=== PATIENT | female | born 1940 | race Caucasian/White ===

== ENCOUNTER 2017-03-21 10:54 | Inpatient (IN) | payer MEDICARE ==
[~2017-03-21] VITALS: Ht 165.1 cm; Wt 81.6 kg
[~2017-03-21 10:54] MED LIST: ATOR20TA PO; CIPR-259 PO; GLUC-221; LEVO50TA PO; METR500T PO; MULT-1133; OMEP40CA37 PO; ONDA4TAB9 PO; OSC500T PO
[2017-03-21] MEDS ORDERED: ondansetron/PF 4mg/2ml inj IV ONE ×2 (11:10→11:35)
[2017-03-21] MEDS ORDERED: normal saline 1000ML IV soln IVB ONE ×3 (11:10→11:50)
[2017-03-21 11:26] LABS: BASOPHILS # (AUTO) 0.1 X10'3 (0-0.2); BASOPHILS % (AUTO) 0.6 % (0-1); EOSINOPHILS # (AUTO) 0.2 X10'3 (0-0.9); EOSINOPHILS % (AUTO) 1.9 % (0-6); HEMATOCRIT 41.5 % (35.0-45.0); HEMOGLOBIN 13.9 g/dl (12.0-16.0); LYMPHOCYTES # (AUTO) 1.5 X10'3 (1.1-4.8); LYMPHOCYTES % (AUTO) 11.5 % (21-51); MEAN CORPUSCULAR HEMOGLOBIN 30.8 PG (27.0-31.0); MEAN CORPUSCULAR HGB CONC 33.4 % (33.0-36.5); MEAN CORPUSCULAR VOLUME 92.2 FL (78-98); MEAN PLATELET VOLUME 7.7 FL (7.4-10.4); MONOCYTES # (AUTO) 0.9 X10'3 (0-0.9); MONOCYTES % (AUTO) 7.3 % (2-12); NEUTROPHILS % (AUTO) 78.7 % (42-75); PLATELET COUNT 213 X10'3 (140-440); RED CELL DISTRIBUTION WIDTH 12.9 % (11.5-14.5); WHITE BLOOD COUNT 12.6 X10'3 (4.5-11.0)
[2017-03-21] MEDS ORDERED: LORazepam 2 mg/ml vial IV ONE (11:35)
[2017-03-21] MEDS ORDERED: HYDROmorphone 1 mg/ml syringe IV ONE (11:35)
[2017-03-21] MEDS ORDERED: HYDROmorphone 1 mg/ml syringe IV PRN (11:35)
[2017-03-21 11:44] LABS: ALANINE AMINOTRANSFERASE 23 U/L (12-78); ALBUMIN 3.3 G/DL (3.4-5.0); ALKALINE PHOSPHATASE 87 IU/L (46-116); ANION GAP 4 (8-16); ASPARTATE AMINO TRANSFERASE 17 U/L (10-37); BILIRUBIN,TOTAL 0.4 MG/DL (0.1-1.0); BLOOD UREA NITROGEN 9 MG/DL (7-18); BUN/CREATININE RATIO 9.2 (6.6-38.0); CALCIUM 8.9 MG/DL (8.5-10.1); CHLORIDE 107 MMOL/L (99-107); CREATININE 0.98 MG/DL (0.40-0.90); GLUCOSE 93 MG/DL (70-104); POTASSIUM 3.8 MMOL/L (3.5-5.1); SODIUM 142 MMOL/L (135-145); TOTAL CARBON DIOXIDE 30.8 MMOL/L (24-32); TOTAL PROTEIN 6.5 G/DL (6.4-8.2); eGFR 55 ML/MIN
[2017-03-21] MEDS ORDERED: piperacillin/tazo 3.375gm/50ml 50 ML IV ONE (11:45)
[2017-03-21 11:47] LABS: LIPASE 118 U/L (73-393)
[2017-03-21 11:48] LABS: INR 0.9 INR; PROTHROMBIN TIME 9.7 SECONDS (9.0-12.0)
[2017-03-21] MEDS ORDERED: iohexol 300mg/ml 100ml inj. ONE (13:08)
[2017-03-21 13:46] LABS: CLARITY,URINE Clear (Clear); COLOR,URINE Yellow (Yellow); GLUCOSE, URINE Negative (Neg); KETONES,URINE Negative (Neg); LEUKOCYTE ESTERASE ,URINE Negative (Neg); NITRITES, URINE Negative (Neg); OCCULT BLOOD,URINE Negative (Neg); PROTEIN,URINE Negative (Neg); UROBILINOGEN,URINE 0.2 E.U/dL (0.2-1.0)
[2017-03-21 13:47] LABS: UA COLLECTION TYPE OTHER
[2017-03-21] MEDS ORDERED: HYDROcodone/acetaminophen 5mg/325mg tablet PO PRN (14:10)
[2017-03-21] MEDS ORDERED: acetaminophen 325mg tablet PO PRN ×2 (14:10)
[2017-03-21] MEDS ORDERED: mag hydrox/Alum hydrox/simeth 30ml oral suspension PO PRN (14:10)
[2017-03-21] MEDS ORDERED: magnesium hydroxide 30ml (MOM) UD suspension PO PRN (14:10)
[2017-03-21] MEDS ORDERED: ondansetron/PF 4mg/2ml inj IV PRN (14:10)
[2017-03-21] MEDS: normal saline 1000ml 1,000 ML IV SCH (14:59)
[2017-03-21 16:00] VITALS: BP 120/53
[2017-03-21 20:00] VITALS: BP 127/56
[2017-03-21] MEDS ORDERED: docusate sod 100mg capsule PO ONE (20:00)
[2017-03-21] MEDS: docusate sod 100mg capsule PO SCH (20:00)
[2017-03-21] MEDS: HYDROcodone/acetaminophen 10/325mg tab PO PRN (20:20)
[2017-03-21 21:26] LABS: OCCULT BLOOD STOOL NEGATIVE (Neg)
[2017-03-22] VITALS: BP 114/61
[2017-03-22] MEDS: HYDROcodone/acetaminophen 10/325mg tab PO PRN ×2 (03:13→18:57)
[2017-03-22] MEDS: normal saline 1000ml 1,000 ML IV SCH ×3 (03:37→20:32)
[2017-03-22] MEDS: HYDROmorphone inj. 0.5 MG/0.5 ML DISP.SYRIN IV PRN ×2 (03:47→10:49)
[2017-03-22 06:21] LABS: BASOPHILS % (AUTO) 0.5 % (0-1); EOSINOPHILS # (AUTO) 0.3 X10'3 (0-0.9); EOSINOPHILS % (AUTO) 3.3 % (0-6); HEMATOCRIT 36.5 % (35.0-45.0); HEMOGLOBIN 12.1 g/dl (12.0-16.0); LYMPHOCYTES % (AUTO) 23.9 % (21-51); MEAN CORPUSCULAR HEMOGLOBIN 30.4 PG (27.0-31.0); MEAN CORPUSCULAR HGB CONC 33.2 % (33.0-36.5); MEAN CORPUSCULAR VOLUME 91.4 FL (78-98); MEAN PLATELET VOLUME 8.2 FL (7.4-10.4); MONOCYTES # (AUTO) 0.9 X10'3 (0-0.9); MONOCYTES % (AUTO) 10.8 % (2-12); NEUTROPHILS # (AUTO) 5.2 X10'3 (1.8-7.7); NEUTROPHILS % (AUTO) 61.5 % (42-75); PLATELET COUNT 184 X10'3 (140-440); RED BLOOD COUNT 3.99 X10'6 (4.20-5.60); RED CELL DISTRIBUTION WIDTH 12.9 % (11.5-14.5); WHITE BLOOD COUNT 8.5 X10'3 (4.5-11.0)
[2017-03-22 06:24] LABS: ALBUMIN 2.7 G/DL (3.4-5.0); ANION GAP 5 (8-16); BLOOD UREA NITROGEN 5 MG/DL (7-18); BUN/CREATININE RATIO 6.3 (6.6-38.0); CALCIUM 8.5 MG/DL (8.5-10.1); CHLORIDE 110 MMOL/L (99-107); GLUCOSE 94 MG/DL (70-104); MAGNESIUM 1.8 MG/DL (1.5-2.4); POTASSIUM 3.5 MMOL/L (3.5-5.1); SODIUM 142 MMOL/L (135-145); TOTAL CARBON DIOXIDE 27.5 MMOL/L (24-32); eGFR 70 ML/MIN
[2017-03-22 07:16] VITALS: BP 108/60
[2017-03-22] MEDS: docusate sod 100mg capsule PO SCH ×2 (08:00→20:28)
[2017-03-22 11:39] VITALS: BP 133/69
[2017-03-22] MEDS ORDERED: docusate sod 100mg capsule PO ONE (11:55)
[2017-03-22 20:00] VITALS: BP 124/69
[2017-03-23] VITALS: BP 130/62
[2017-03-23] MEDS: normal saline 1000ml 1,000 ML IV SCH ×2 (05:34→16:22)
[2017-03-23 06:21] LABS: BASOPHILS % (AUTO) 0.6 % (0-1); EOSINOPHILS # (AUTO) 0.2 X10'3 (0-0.9); EOSINOPHILS % (AUTO) 4.1 % (0-6); HEMATOCRIT 35.7 % (35.0-45.0); HEMOGLOBIN 11.9 g/dl (12.0-16.0); LYMPHOCYTES % (AUTO) 34.3 % (21-51); MEAN CORPUSCULAR HEMOGLOBIN 30.2 PG (27.0-31.0); MEAN CORPUSCULAR HGB CONC 33.2 % (33.0-36.5); MEAN CORPUSCULAR VOLUME 90.9 FL (78-98); MEAN PLATELET VOLUME 8.1 FL (7.4-10.4); MONOCYTES # (AUTO) 0.6 X10'3 (0-0.9); MONOCYTES % (AUTO) 10.9 % (2-12); NEUTROPHILS % (AUTO) 50.1 % (42-75); PLATELET COUNT 178 X10'3 (140-440); RED BLOOD COUNT 3.93 X10'6 (4.20-5.60); WHITE BLOOD COUNT 5.9 X10'3 (4.5-11.0)
[2017-03-23 06:23] LABS: ALBUMIN 2.5 G/DL (3.4-5.0); ANION GAP 4 (8-16); BLOOD UREA NITROGEN 3 MG/DL (7-18); BUN/CREATININE RATIO 3.3 (6.6-38.0); CALCIUM 8.5 MG/DL (8.5-10.1); CHLORIDE 111 MMOL/L (99-107); GLUCOSE 92 MG/DL (70-104); MAGNESIUM 1.8 MG/DL (1.5-2.4); POTASSIUM 3.4 MMOL/L (3.5-5.1); SODIUM 145 MMOL/L (135-145); TOTAL CARBON DIOXIDE 29.8 MMOL/L (24-32); eGFR 61 ML/MIN
[2017-03-23 07:07] VITALS: BP 126/60
[2017-03-23] MEDS: levoTHYROXINE 25mcg tablet PO SCH (08:28)
[2017-03-23] MEDS: calcium carbonate 500mg tablet PO SCH (08:28)
[2017-03-23] MEDS: docusate sod 100mg capsule PO SCH ×2 (08:28→19:50)
[2017-03-23] MEDS: atorvastatin 20mg tablet PO SCH (08:28)
[2017-03-23] MEDS: HYDROmorphone inj. 0.5 MG/0.5 ML DISP.SYRIN IV PRN (08:28)
[2017-03-23] MEDS: multivitamins, therapeutics tablet PO SCH (08:28)
[2017-03-23] MEDS: pantoprazole 40mg Tablet.DR PO SCH (08:28)
[2017-03-23] MEDS ORDERED: magnesium 2GM in 50ml NS 50 ML IV PRN (08:50)
[2017-03-23] MEDS ORDERED: magnesium 4gm in 100ml NS 100 ML IV PRN (08:50)
[2017-03-23] MEDS ORDERED: potassium Cl 40MEQ/NS 500ml 500 ML IV PRN ×2 (08:50)
[2017-03-23] MEDS ORDERED: magnesium Cl slow-release 64mg tablet PO PRN (08:50)
[2017-03-23] MEDS ORDERED: potassium Cl 20 mEq SR tablet PO PRN ×2 (08:50)
[2017-03-23] MEDS ORDERED: Potassium Cl inj 40 MEQ, LIDOcaine 1% 30ml vial 5 ML in normal saline 500ml IV soln 500 ML IV ONE (09:25)
[2017-03-23] MEDS: MESSAGE TO NURSING PO NR (10:48)
[2017-03-23 11:00] VITALS: BP 128/62
[2017-03-23] MEDS ORDERED: lactulose 20gm/30ml cup PO ONE (15:20)
[2017-03-23 20:00] VITALS: BP 132/49
[2017-03-23] MEDS: temazepam 15mg capsule PO PRN (23:49)
[2017-03-24] VITALS: BP 127/61
[2017-03-24] MEDS: normal saline 1000ml 1,000 ML IV SCH ×3 (05:50→15:00)
[2017-03-24 06:39] LABS: ALBUMIN 2.3 G/DL (3.4-5.0); ANION GAP 8 (8-16); BLOOD UREA NITROGEN 4 MG/DL (7-18); BUN/CREATININE RATIO 6.7 (6.6-38.0); CALCIUM 7.5 MG/DL (8.5-10.1); CHLORIDE 117 MMOL/L (99-107); GLUCOSE 85 MG/DL (70-104); MAGNESIUM 1.3 MG/DL (1.5-2.4); POTASSIUM 3.3 MMOL/L (3.5-5.1); SODIUM 149 MMOL/L (135-145); TOTAL CARBON DIOXIDE 24.4 MMOL/L (24-32); eGFR > 90 ML/MIN
[2017-03-24] MEDS ORDERED: LIDOcaine 1% 30ml vial 5 ML in potassium Cl 40MEQ/NS 500ml 500 ML IV PRN (07:00)
[2017-03-24] MEDS: docusate sod 100mg capsule PO SCH ×2 (07:29→20:43)
[2017-03-24] MEDS: multivitamins, therapeutics tablet PO SCH (07:29)
[2017-03-24] MEDS: levoTHYROXINE 25mcg tablet PO SCH (07:29)
[2017-03-24] MEDS: atorvastatin 20mg tablet PO SCH (07:29)
[2017-03-24] MEDS: calcium carbonate 500mg tablet PO SCH (07:29)
[2017-03-24] MEDS: pantoprazole 40mg Tablet.DR PO SCH (07:29)
[2017-03-24 08:00] VITALS: BP 136/60
[2017-03-24 08:03] LABS: BASOPHILS % (AUTO) 0.4 % (0-1); EOSINOPHILS # (AUTO) 0.2 X10'3 (0-0.9); HEMATOCRIT 36.8 % (35.0-45.0); HEMOGLOBIN 12.8 g/dl (12.0-16.0); LYMPHOCYTES # (AUTO) 1.7 X10'3 (1.1-4.8); LYMPHOCYTES % (AUTO) 27.2 % (21-51); MEAN CORPUSCULAR HEMOGLOBIN 30.9 PG (27.0-31.0); MEAN CORPUSCULAR HGB CONC 34.8 % (33.0-36.5); MEAN CORPUSCULAR VOLUME 88.8 FL (78-98); MEAN PLATELET VOLUME 8.2 FL (7.4-10.4); MONOCYTES # (AUTO) 0.6 X10'3 (0-0.9); MONOCYTES % (AUTO) 9.5 % (2-12); NEUTROPHILS # (AUTO) 3.6 X10'3 (1.8-7.7); NEUTROPHILS % (AUTO) 59.9 % (42-75); PLATELET COUNT 210 X10'3 (140-440); RED BLOOD COUNT 4.14 X10'6 (4.20-5.60); RED CELL DISTRIBUTION WIDTH 12.1 % (11.5-14.5); WHITE BLOOD COUNT 6.2 X10'3 (4.5-11.0)
[2017-03-24] MEDS ORDERED: bisacodyl 10mg suppository rectal RC ONE (08:35)
[2017-03-24] MEDS: MESSAGE TO NURSING PO NR (10:00)
[2017-03-24 11:00] VITALS: BP 126/59
[2017-03-24] MEDS ORDERED: LORazepam 2 mg/ml vial IV ONE (13:05)
[2017-03-24 20:00] VITALS: BP 152/68
[2017-03-25] VITALS: BP 132/67
[2017-03-25] MEDS: temazepam 15mg capsule PO PRN (00:40)
[2017-03-25] MEDS: normal saline 1000ml 1,000 ML IV SCH (05:00)
[2017-03-25 06:46] LABS: BASOPHILS % (AUTO) 0.7 % (0-1); EOSINOPHILS # (AUTO) 0.2 X10'3 (0-0.9); EOSINOPHILS % (AUTO) 3.1 % (0-6); HEMATOCRIT 37.7 % (35.0-45.0); HEMOGLOBIN 12.6 g/dl (12.0-16.0); LYMPHOCYTES # (AUTO) 1.4 X10'3 (1.1-4.8); LYMPHOCYTES % (AUTO) 24.7 % (21-51); MEAN CORPUSCULAR HEMOGLOBIN 30.4 PG (27.0-31.0); MEAN CORPUSCULAR HGB CONC 33.5 % (33.0-36.5); MEAN CORPUSCULAR VOLUME 90.8 FL (78-98); MEAN PLATELET VOLUME 8.1 FL (7.4-10.4); MONOCYTES # (AUTO) 0.5 X10'3 (0-0.9); MONOCYTES % (AUTO) 9.4 % (2-12); NEUTROPHILS # (AUTO) 3.6 X10'3 (1.8-7.7); NEUTROPHILS % (AUTO) 62.1 % (42-75); PLATELET COUNT 205 X10'3 (140-440); RED BLOOD COUNT 4.16 X10'6 (4.20-5.60); RED CELL DISTRIBUTION WIDTH 13.2 % (11.5-14.5); WHITE BLOOD COUNT 5.9 X10'3 (4.5-11.0)
[2017-03-25 06:47] LABS: ALBUMIN 2.6 G/DL (3.4-5.0); ANION GAP 7 (8-16); BLOOD UREA NITROGEN 6 MG/DL (7-18); BUN/CREATININE RATIO 8.6 (6.6-38.0); CALCIUM 8.5 MG/DL (8.5-10.1); CHLORIDE 113 MMOL/L (99-107); GLUCOSE 99 MG/DL (70-104); MAGNESIUM 1.6 MG/DL (1.5-2.4); POTASSIUM 3.8 MMOL/L (3.5-5.1); SODIUM 145 MMOL/L (135-145); TOTAL CARBON DIOXIDE 24.8 MMOL/L (24-32); eGFR 82 ML/MIN
[2017-03-25 07:12] VITALS: BP 126/76
[2017-03-25] MEDS: multivitamins, therapeutics tablet PO SCH (07:22)
[2017-03-25] MEDS: pantoprazole 40mg Tablet.DR PO SCH (07:22)
[2017-03-25] MEDS: docusate sod 100mg capsule PO SCH (07:22)
[2017-03-25] MEDS: levoTHYROXINE 25mcg tablet PO SCH (07:22)
[2017-03-25] MEDS: atorvastatin 20mg tablet PO SCH (07:22)
[2017-03-25] MEDS: calcium carbonate 500mg tablet PO SCH (07:22)
[2017-03-25] MEDS: MESSAGE TO NURSING PO NR (09:33)
[2017-03-25 12:30] VITALS: BP 140/58
== END 2017-03-25 14:20 | disposition home or self-care (01) | DRG 392 ==
LOC: ER 10:56 → MED 3N 16:29 → CMPBEDREQ 19:25
PROVIDERS: ADMIT Family Medicine; ATTEND Family Medicine
PROC: BW211ZZ Computerized Tomography (CT Scan) of Abdomen and Pelvis using Low Osmolar Contrast (ICD-10-PCS; principal; 2017-03-21)
DX: K52.9 Noninfective gastroenteritis and colitis, unspecified (principal); D72.829 Elevated white blood cell count, unspecified; K59.03 Drug induced constipation; E78.00 Pure hypercholesterolemia, unspecified; K64.8 Other hemorrhoids; F41.9 Anxiety disorder, unspecified; K21.9 Gastro-esophageal reflux disease without esophagitis; K57.90 Diverticulosis of intestine, part unspecified, without perforation or abscess without bleeding; M81.0 Age-related osteoporosis without current pathological fracture; M19.90 Unspecified osteoarthritis, unspecified site; T40.2X5A Adverse effect of other opioids, initial encounter; Z90.710 Acquired absence of both cervix and uterus; Z79.899 Other long term (current) drug therapy; Z82.49 Family history of ischemic heart disease and other diseases of the circulatory system; Y92.89 Other specified places as the place of occurrence of the external cause
CPT/HCPCS: 36415; 74021; 74177; 80048; 80053; 81003; 82272; 83605; 83690; 83735; 85025; 85610; 87040; 87045; 87046; 87070; 87324; 87449; 89055; 96365; 96375; 99285; A6446; J1170; J2060; J2270; J2405; J2543; J3480; J3490; J7030; Q9967

== ENCOUNTER 2022-11-03 13:42 | Outpatient (CLI) | payer MEDICARE, OTHER ==
[~2022-11-03 13:42] MED LIST changes: -CIPR-259 PO; -METR500T PO; +OMEP40CA21 PO; -OMEP40CA37 PO; -ONDA4TAB9 PO
== END 2022-11-03 23:59 | disposition home or self-care (01) ==
LOC: RAD 13:42
PROVIDERS: ATTEND Family Medicine
DX: S83.281A Other tear of lateral meniscus, current injury, right knee, initial encounter (principal); S83.8X1A Sprain of other specified parts of right knee, initial encounter; M17.11 Unilateral primary osteoarthritis, right knee; M94.261 Chondromalacia, right knee; M25.461 Effusion, right knee; M65.861 Other synovitis and tenosynovitis, right lower leg; M25.561 Pain in right knee; X58.XXXA Exposure to other specified factors, initial encounter; Y93.89 Activity, other specified; Y92.89 Other specified places as the place of occurrence of the external cause; Y99.8 Other external cause status
CPT/HCPCS: 73721

== ENCOUNTER 2024-11-29 14:44 | Emergency (ER) | payer MEDICARE, OTHER ==
[~2024-11-29] VITALS: Ht 165.1 cm; Wt 72.7 kg
[~2024-11-29 14:44] MED LIST changes: -ATOR20TA PO; +DULO-31 PO; +GABA300C PO; +MELO-100 PO; +METO-395 PO; -OSC500T PO
[2024-11-29 14:59] VITALS: TEMP 98.7
[2024-11-29] MEDS: proparacaine 0.5% ophthalmic drops 15ml LEFTEYE ONE (16:36)
[2024-11-29 16:39] VITALS: BP 137/59; PULSE 98; RESP 16; O2SAT 98
[2024-11-29] MEDS ORDERED: PRED50TA PO (16:40)
[2024-11-29] MEDS ORDERED: VALA100031 PO (16:40)
--- NOTE | 2024-11-29 16:42 | Physician Documentation ---
History of Present Illness ~ Chief Complaint: Headache Stated Complaint: HEADACHE Time Seen by MD: 15:43 Primary Medical Doctor: Edison Grigsby ([facility]) for neuro, Cross Source: patient Mode of Arrival: POV, Ambulatory Exam Limitations: no limitations HPI Ms. Najera is an 84 y/o female who presents with c/o a PERALES. She states that the PERALES started on Nov and is associated with a rash to the left side of her face. She states that the pain is actually to the left side of her face and not in her head. 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 She states that her symptoms were improving but when she completed the script, the symptoms returned. She denies recent head trauma. No neck pain or stiffness. No ocular pain or acute visual changes. No fever/chills. No recent changes in her hearing. She does not wear contact lens. Medication Reconciliation Allergies: Coded Allergies: No Known Allergies (Unverified , 07/16/24) Scheduled Duloxetine Hcl* (Cymbalta*), 60 MG PO DAILY, (Reported) Gabapentin (Neurontin), 1 CAP PO Q8H, (Reported) Levothyroxine Sodium (Synthroid), 1 TABLET PO DAILY, (Reported) Meloxicam* (Meloxicam*), 1 TAB PO DAILY, (Reported) Metoprolol Succinate (Metoprolol Succinate), 1 TAB PO DAILY, (Reported) Omeprazole (Prilosec), 0.5 CAP PO DAILY, (Reported) Prednisone (Prednisone), 1 TAB PO DAILY Valacyclovir HCl (Valacyclovir), 1 TAB PO Q8H Miscellaneous Medications Glucosam/Chond/Hyalu/Cf Borate (Move Free Joint Health Tablet), (Reported) Multivits-Min/Iron/FA/Lutein (Centrum Silver Women Tablet), (Reported) Past Medical History Past Medical History: Seizures, High Cholesterol, Constipation, GERD, Hemorrhoids, Thyroid (unspecified), Arthritis, Osteoporosis Past Surgical History: hysterectomy, orthopedic surgeries Patient History: (CAD) Coronary arteriosclerosis FATHER, Onset:Unknown Alcohol Use: Rarely Drug Use: none Lives with: Family Lives In: Home Occupation: retired Review of Systems All Other Systems at this time: Reviewed and Negative ROS As stated above in the HPI, otherwise all systems are reviewed and negative. Physical Exam Vital Signs: RN Vital Signs have been reviewed: Yes, Temperature: 98.7, Heart Rate: 73, Respiratory Rate: 16, BP: 129/61, Pulse Oximetry: 100, Weight: 72.730 Oxygen Flow Rate: 0 Physical Exam VITALS: Reviewed and as above. GENERAL: Alert, no apparent distress. HEENT: Normocephalic, atraumatic, PERRL, EOMI, dry mucosa, no erythema RESPIRATORY: Lungs clear, normal breath sounds, no respiratory distress. CHEST: No accessory muscle use, no retractions CV: Regular rate, rhythm, no edema, no murmur, No: JVD GI: Soft, tenderness to the lower abdomen with palpation., bowels sounds present, no rebound, guarding, or rigidity BACK: No CVA tenderness, or swelling MUSCULOSKELETAL No deformities, no edema SKIN: Rash to left side of face. No blisters or bullae. No petechia. NEURO: Oriented x4, No motor or sensory deficit PSYCH: Normal mood and affect, no agitation Progress Results/Orders Results/Orders Completed Orders - ASHKAN JIMENEZ MD Proparacaine Ophth Solution (Alcaine Oph (11/29/24 16:30) Vital Signs 11/29/24 11/29/24 11/29/24 11/29/24 14:59 15:56 16:06 16:39 Temp 98.7 Pulse 82 73 98 Resp 16 16 16 16 B/P (MAP) 119/51 129/61 (83) 137/59 Pulse Ox 96 100 98 O2 Flow Rate 0 0 Medical Decision Making Differential Dx:Considerations: Include: PERALES-Migraine, PERALES-Hypertensive, CVA, Mass lesion, Meningitis, Temporal arteritis, Trigeminal neuralgia Additional Comment While here in the ED, she remained hemodynamically normal with ABC's intact and in NAD. She is afebrile and nontoxic. She is noted to have a rash to the left side of her face that, along with her presentation, is highly consistent with shingles. No TTP over temporal artery and I have low clinical concern for Glaucoma. She has no pain to the left eye or signs concerning for ocular involvement or septal cellulitis. I evaluated the left eye with fluoroscein dye and the Wood's lamp and it was negative for dendritic lesions. No lesions in her ear. She will be started on Valacyclovir and Prednisone. She has Gabapentin at home and was instructed to take one tab (300 mg) TID. She was given follow-up and return instructions. She voiced understanding and agreement with d/c instructions. Departure Disposition: HOME / SELF CARE / HOMELESS Impression: Primary Impression: Headache Additional Impression: Shingles Condition: Improved Discharge Instructions: Shingles, [id number]-[id number] Referrals: NO PRIMARY CARE PROVIDER (PCP) Prescriptions Prednisone (Prednisone) 50 Mg Tablet 1 TAB PO DAILY for 5 Days, #5 TAB 0 Refills Prov: ASHKAN JIMENEZ MD 11/29/24 Valacyclovir HCl (Valacyclovir) 1,000 Mg Tablet 1 TAB PO Q8H for 7 Days, #21 TAB 0 Refills Prov: ASHKAN JIMENEZ MD 11/29/24 Education Educated: Patient Educated regarding: diagnosis, treatment Additional Comment Take medications as prescribed. Please follow up with her primary care provider. Please return to the emergency department with any worsening or recurrent symptoms or any additional concerning symptoms that we discussed here today. Signature Scribe Signature: N/A Attestation: N/A ASHKAN JIMENEZ MD Nov 29, 2024 16:42
== END 2024-11-29 16:48 | disposition home or self-care (01) ==
LOC: ER 14:44
DX: R51.9 Headache, unspecified (principal); B02.9 Zoster without complications; E78.00 Pure hypercholesterolemia, unspecified; I25.10 Atherosclerotic heart disease of native coronary artery without angina pectoris; K21.9 Gastro-esophageal reflux disease without esophagitis; M19.90 Unspecified osteoarthritis, unspecified site; Z87.19 Personal history of other diseases of the digestive system; Z90.710 Acquired absence of both cervix and uterus; Z79.899 Other long term (current) drug therapy; Z98.890 Other specified postprocedural states
CPT/HCPCS: 99283